=== PATIENT | female | born 1995 | race Caucasian/White ===

== ENCOUNTER 2018-06-03 23:14 | Emergency (ER) | payer MEDICAID, SELFPAY ==
[2018-06-03 23:17] VITALS: BP 101/79; PULSE 77; RESP 16; TEMP 36.6; O2SAT 98
--- NOTE | 2018-06-03 23:27 | ED.GENADUL_ITS ---
Discharge Plan Disposition Patient Disposition: HOME Condition: Improving Discharge Details Chief Complaint: Orthopedic Clinical Impression: Right ankle strain Primary Care Provider: Marko Rider ED Provider: Bandar Frey Home Meds and New Rx's Prescriptions: Continue clonidine HCl 0.1 mg Tablet 0.1 mg PO BID RF: 0 dexmethylphenidate 10 mg Tablet 10 mg PO BID RF: 0 hydroxyzine pamoate 25 mg Capsule 25 mg PO HS RF: 0 quetiapine [Seroquel] 50 mg Tablet 50 mg PO HS RF: 0 sertraline [Zoloft] 25 MG tablet 200 mg PO DAILY RF: 0 acetaminophen [Tylenol] 325 MG tablet 650 mg PO Q6H PRN PRNRF: 0 Discharge Instructions Instructions: Ankle Sprain (ED), Muscle Strain (ED) Additional Instructions: Crutches as needed for 3-5 days time. Clyde bandage for compression and stability. Elevate above the level of the heart to reduce pain and swelling. Apply ice to reduce discomfort. Tylenol and/or ibuprofen as needed for pain. Return to the emergency department for any acute concerns Stand Alone Forms: Work Release Medical Decision Making 22-year-old female who rolled her right ankle earlier in the day. She did not injure herself in any other way. She went to work and had progressive pain and swelling over the course of the day. She has normal vital signs and exam that shows swelling tenderness overlying the talofibular ligament. Patient referred for x-ray to rule out underlying fracture versus sprain/strain. X-ray obtained without evidence of underlying fracture. Will treat with Clyde bandage and crutches. She stable for outpatient management of ankle strain HPI General Mode of arrival: ambulatory . Date/Time Provider Initiated Documentation: 06/03/18 23:23 . Limitations to Documentation: no limitations . Information obtained by: patient . History of Present Illness 22 year old F presents to the emergency department with the chief complaint of Right ankle pain, described as moderate, Quality is described as aching, and is localized to the right and lower extremity. Patient reports no radiation. Patient started experiencing this hour(s) and it has been constant. Rest improves symptom(s), Movement worsens symptoms . Patient notes no other symptoms.. Patient did receive the following treatments prior to arrival, NSAID Related Data Home Medications Medication Instructions Recorded Confirmed acetaminophen [Tylenol] 650 mg PO Q6H PRN PRN tab 04/19/17 06/03/18 clonidine HCl 0.1 mg PO BID 06/03/18 06/03/18 dexmethylphenidate 10 mg PO BID 06/03/18 06/03/18 hydroxyzine pamoate 25 mg PO HS 06/03/18 06/03/18 quetiapine [Seroquel] 50 mg PO HS 06/03/18 06/03/18 sertraline [Zoloft] 200 mg PO DAILY 06/03/18 06/03/18 Previous Rx's Medication Instructions Recorded acetaminophen [Tylenol] 650 mg PO Q6H PRN PRN tab 04/19/17 Allergies Allergy/AdvReac Type Severity Reaction Status Date / Time Sulfa (Sulfonamide Allergy Unknown hives Unverified 07/10/17 08:43 Antibiotics) morphine Allergy Unverified 07/10/17 08:43 General Stated Complaint: Orthopedic WALE: 4 Review of Systems Review of Systems For systems reviewed and otherwise neg PFSH Family History Mother Substance abuse Alcohol abuse Mental disorder Father Substance abuse Alcohol abuse Mental disorder Sister No problems noted. Medical History BMI 45.0-49.9, adult Social History Smoking/Tobacco Use Status: Former Tobacco Use Surgical History Cholecystectomy (12/14/13) Exam Narrative Exam Narrative: GEN: awake, alert, oriented 3. Pleasant, well groomed, interactive. HEAD: Normocephalic, atraumatic ENT: Mucous membranes moist, oropharynx unremarkable, External ear exam unremarkable EYES: PERRL, EOMI NECK: Full ROM, no WILVER, no menigismus EXT: Full ROM, the right ankle has lateral swelling and tenderness on palpation. Motor serrated 5 out of 5 but limited somewhat by pain. Sensation is intact throughout Neuro: Grossly normal neurologic exam, conversant, interactive. Psych: Speech fluent, thoughts congruent, affect normal Course Vital Signs Temperature 36.6 C 06/03/18 23:17 Pulse 77 06/03/18 23:17 Respiratory Rate 16 06/03/18 23:17 Blood Pressure 101/79 06/03/18 23:17 Pulse Oximetry 98 06/03/18 23:17 Temperature 36.6 C 06/03/18 23:17 Temperature Source Skin 06/03/18 23:17 Pulse 77 06/03/18 23:17 Respiratory Rate 16 06/03/18 23:17 Respiratory Effort 06/03/18 23:24 Blood Pressure 101/79 06/03/18 23:17 Blood Pressure Position Sitting 06/03/18 23:17 Pulse Oximetry 98 06/03/18 23:17 Oxygen Delivery Method Room Air 06/03/18 23:17 Oxygen Flow Rate 0 06/03/18 23:17 Pain Level 10 06/03/18 23:17
[2018-06-03] MEDS: Ibuprofen 800 MG TAB PO (23:31)
--- NOTE | 2018-06-03 23:40 | DI.RAD_ITS ---
SYMPTOMS/DIAGNOSIS: LATERAL PAIN RIGHT ANKLE: No fracture or ankle mortise widening is seen. IMPRESSION: Negative right ankle.
--- NOTE | 2018-06-04 00:12 | DI.VRAD_ITS ---
EXAM: XR Right Ankle Complete, 3 or more Views EXAM DATE/TIME: 06/03/2018 11:24 PM CLINICAL HISTORY: 22 years old, female; Pain; Ankle; Right; Patient HX: Rolled ankle and pain TECHNIQUE: XR Right ankle 3 or more views. COMPARISON: No relevant prior studies available. FINDINGS: Bones/joints: Osseous mineralization is normal. Soft tissues: Normal. IMPRESSION: No acute fracture or malalignment. Dictated and Authenticated by: Kathryn Butler MD. Ordering:GT LANTIGUA MD
== END 2018-06-04 02:06 | disposition home or self-care (01) ==
PROVIDERS: Emergency Provider Emergency Medicine; PCP Family Medicine
DX: S93.401A Sprain of unspecified ligament of right ankle, initial encounter (principal); X50.9XXA Other and unspecified overexertion or strenuous movements or postures, initial encounter
CPT/HCPCS: 99283; 73610; E0114

== ENCOUNTER 2018-07-13 21:11 | Emergency (ER) | payer MEDICAID, SELFPAY ==
[2018-07-13 21:19] VITALS: BP 122/66; PULSE 86; RESP 16; TEMP 37.1; O2SAT 99
--- NOTE | 2018-07-13 21:29 | W.ED.GENAD ---
Discharge Plan Disposition Patient Disposition: HOME Condition: Fair Discharge Details Chief Complaint: Nk/Back Pain Clinical Impression: Muscle strain Primary Care Provider: Marko Rider ED Provider: Magda Oro Home Meds and New Rx's Prescriptions: New ibuprofen 600 mg tablet 600 mg PO QID PRN (Reason: pain) Qty: 20 RF: 0 Continue clonidine HCl 0.1 mg Tablet 0.1 mg PO BID RF: 0 dexmethylphenidate 10 mg Tablet 10 mg PO BID RF: 0 hydroxyzine pamoate 25 mg Capsule 25 mg PO HS RF: 0 quetiapine [Seroquel] 50 mg Tablet 50 mg PO HS RF: 0 sertraline [Zoloft] 25 MG tablet 200 mg PO DAILY RF: 0 acetaminophen [Tylenol] 325 MG tablet 650 mg PO Q6H PRN PRNRF: 0 Discharge Instructions Instructions: Muscle Strain (ED) Additional Instructions: Encourage hydration. Tylenol and/or Ibuprofen as needed for discomfort. Take care to not use more than 4,000mg daily of Tylenol, Tylenol is an ingredient in Excedrine. You may try topical options for discomfort including heat or ice, Salonpas or Lidoderm patches which are available over the counter. Physical therapy referral included. Please avoid activities that increase your discomfort. Please encourage gentle stretching and frequent ambulation. If you develop increased pain, fevers/chills, weakness or other new/worsening symptoms please seek care urgently once again. Stand Alone Forms: Physical Therapy Referral Referrals: Marko Rider [Primary Care Provider] - Discharge Data Discharge Date/Time-TO BE ENTERED AT DEPARTURE: 07/13/18 21:54 Medical Decision Making Patient is a 22-year-old female presenting today with chief complaint of left-sided back pain. She is coming by her significant other. She reports that 2-3 weeks ago, while lifting long heavy boards at work in a repetitive fashion, she had onset of discomfort. No trauma. Did not fall. Denies any one episode that caused the sudden onset of pain. Rather, she feels that this is from repetitive movements exacerbating this discomfort. Pain is along the left side of the back in the low thoracic region. No CVA tenderness. No paraspinal or midline tenderness. Area is fairly diffuse with no focal findings on exam. She does have good forward flexion and extension the pain is maximal rotation to the left. No neuro deficits noted on exam. With no recent trauma, and I feel that imaging is necessary at this time. Encouraged Tylenol and/or ibuprofen. We discussed topical options to help with discomfort. She will be referred to physical therapy to help with back discomfort. Advise follow-up with primary care in 1 week if symptoms have not improved. We discussed new/worsening symptoms and when to seek care urgently once again. All of her questions and concerns were addressed and she is in agreement with this plan. HPI General Mode of arrival: ambulatory. Date/Time Provider Initiated Documentation: 07/13/18 21:24. Limitations to Documentation: no limitations. Information obtained by: patient and family. History of Present Illness 22 year old F presents to the emergency department with the chief complaint of Left-sided back pain, described as moderate, with intensity rated at 6. Quality is described as aching, and is localized to the back. Patient reports no radiation. Patient started experiencing this week(s) (2) and it has been intermittent. Immobilization improves symptom(s), Movement worsens symptoms . Patient notes no other symptoms.; denies chest pain, cough, fever/chills, loss of appetite, nausea/vomiting, rash, shortness of breath and weakness. Patient did receive the following treatments prior to arrival, none Related Data Home Medications Medication Instructions Recorded Confirmed acetaminophen [Tylenol] 650 mg PO Q6H PRN PRN tab 04/19/17 07/13/18 clonidine HCl 0.1 mg PO BID 06/03/18 07/13/18 dexmethylphenidate 10 mg PO BID 06/03/18 07/13/18 hydroxyzine pamoate 25 mg PO HS 06/03/18 07/13/18 quetiapine [Seroquel] 50 mg PO HS 06/03/18 07/13/18 sertraline [Zoloft] 200 mg PO DAILY 06/03/18 07/13/18 ibuprofen 600 mg PO QID PRN #20 tab 07/13/18 Previous Rx's Medication Instructions Recorded acetaminophen [Tylenol] 650 mg PO Q6H PRN PRN tab 04/19/17 ibuprofen 600 mg PO QID PRN #20 tab 07/13/18 Allergies Allergy/AdvReac Type Severity Reaction Status Date / Time Sulfa (Sulfonamide Allergy Unknown hives Unverified 07/10/17 08:43 Antibiotics) morphine Allergy Unverified 07/10/17 08:43 General Stated Complaint: Nk/Back Pain WALE: 4 Review of Systems Constitutional Reports as per HPI, Denies chills, Denies fever(s), Denies headache(s) and Denies weakness ENT Denies headache(s) Cardiovascular Reports as per HPI, Denies chest pain and Denies dyspnea Respiratory Reports as per HPI, Denies cough and Denies dyspnea Gastrointestinal Reports as per HPI, Denies abdominal pain, Denies change in bowel habits, Denies nausea and Denies vomiting Genitourinary Reports as per HPI, Denies urinary frequency, Denies flank pain and Denies urinary incontinence Musculoskeletal Reports as per HPI, Reports back pain, Denies numbness, Denies radiating pain into limb and Denies tingling Integumentary/Breasts Reports as per HPI, Denies rash and Denies wounds Neurologic Denies headache(s), Denies numbness, Denies tingling and Denies weakness Exam Const General: cooperative, healthy appearing, comfortable, no acute distress, well developed and well groomed Nutritional Appearance: average body habitus and well nourished Orientation: alert and awake Chest Chest: normal inspection of the chest, normal palpation of entire chest wall, no crepitus and no localized rib tenderness Resp Effort & Inspection: normal respiratory effort, able to speak in complete sentences and no respiratory distress Auscultation: clear to auscultation bilaterally, no rales and no rhonchi Cardio Rate: regular rate Rhythm: regular rhythm Heart Sounds: S1 normal and S2 normal Back/Spine/Pelvis Back: no CVA tenderness Cervical Spine: normal cervical lordosis and cervical ROM normal Thoracic/Lumbar Spine: thoracic and lumbar spine normal to inspection (No midline or paraspinal tenderness. No step-off palpated), No thoraco-lumbar ROM normal (Patient has good forward flexion and extension of the spine. However, she reports increased discomfort with rotation, particularly to the left), straight leg raise negative bilaterally, No paraspinal tenderness, No thoraco-lumbar spasm, No thoracic spinal tenderness and No straight leg raise positive Pelvis: no pain with anterior-posterior compression and no pain with lateral compression Skin General skin exam: no rashes or lesions noted Trauma: no lacerations or abrasions Neuro General: alert and awake Cognition: normal cognition Speech: speech normal Gait: normal gait Motor: muscle tone normal throughout, strength 5/5 throughout, no movement abnormalities noted and no fasciculations Sensory Exam: no sensory deficits noted (No saddle. Seizures) DTR's: Rt Patellar: 2+, Lt Patellar: 2+, Rt Ankle: 2+ and Lt Ankle: 2+ Plantar Reflexes: Downgoing: bilateral Coordination: [id number] test normal Extrem General: normal to inspection, no pedal edema, no calf tenderness and normal gait Psych Appearance: grossly normal and well kempt Mental Status: mental status grossly normal Speech and Movement: speech and movement normal Course Vital Signs Temperature 37.1 C 07/13/18 21:19 Pulse 86 07/13/18 21:19 Respiratory Rate 16 07/13/18 21:19 Blood Pressure 122/66 07/13/18 21:19 Pulse Oximetry 99 07/13/18 21:19 Temperature 37.1 C 07/13/18 21:19 Temperature Source Temporal Artery Scan 07/13/18 21:19 Pulse 86 07/13/18 21:19 Respiratory Rate 16 07/13/18 21:19 Respiratory Effort 07/13/18 21:19 Blood Pressure 122/66 07/13/18 21:19 Blood Pressure Position Sitting 07/13/18 21:19 Pulse Oximetry 99 07/13/18 21:19 Oxygen Delivery Method Room Air 07/13/18 21:19 Oxygen Flow Rate 0 07/13/18 21:19 Pain Level 7 07/13/18 21:19
[2018-07-13] MEDS: Acetaminophen 500 MG TAB 1000 MG PO (21:49)
[2018-07-13] MEDS: Lidocaine 5% Patch 1 PATCH TP (21:49)
[2018-07-13] MEDS: Ibuprofen 600 MG TAB PO (21:49)
--- NOTE | 2018-07-14 21:19 | ED.GENADUL_ITS ---
Discharge Plan Disposition Patient Disposition: HOME Condition: Fair Discharge Details Chief Complaint: Nk/Back Pain Clinical Impression: Muscle strain Primary Care Provider: Marko Rider ED Provider: Magda Oro Home Meds and New Rx's Prescriptions: New ibuprofen 600 mg tablet 600 mg PO QID PRN (Reason: pain) Qty: 20 RF: 0 Continue clonidine HCl 0.1 mg Tablet 0.1 mg PO BID RF: 0 dexmethylphenidate 10 mg Tablet 10 mg PO BID RF: 0 hydroxyzine pamoate 25 mg Capsule 25 mg PO HS RF: 0 quetiapine [Seroquel] 50 mg Tablet 50 mg PO HS RF: 0 sertraline [Zoloft] 25 MG tablet 200 mg PO DAILY RF: 0 acetaminophen [Tylenol] 325 MG tablet 650 mg PO Q6H PRN PRNRF: 0 Discharge Instructions Instructions: Muscle Strain (ED) Additional Instructions: Encourage hydration. Tylenol and/or Ibuprofen as needed for discomfort. Take care to not use more than 4,000mg daily of Tylenol, Tylenol is an ingredient in Excedrine. You may try topical options for discomfort including heat or ice, Salonpas or Lidoderm patches which are available over the counter. Physical therapy referral included. Please avoid activities that increase your discomfort. Please encourage gentle stretching and frequent ambulation. If you develop increased pain, fevers/chills, weakness or other new/worsening symptoms please seek care urgently once again. Stand Alone Forms: Physical Therapy Referral Referrals: Marko Rider [Primary Care Provider] - Discharge Data Discharge Date/Time-TO BE ENTERED AT DEPARTURE: 07/13/18 21:54 Medical Decision Making Patient is a 22-year-old female presenting today with chief complaint of left- sided back pain. She is coming by her significant other. She reports that 2-3 weeks ago, while lifting long heavy boards at work in a repetitive fashion, she had onset of discomfort. No trauma. Did not fall. Denies any one episode that caused the sudden onset of pain. Rather, she feels that this is from repetitive movements exacerbating this discomfort. Pain is along the left side of the back in the low thoracic region. No CVA tenderness. No paraspinal or midline tenderness. Area is fairly diffuse with no focal findings on exam. She does have good forward flexion and extension the pain is maximal rotation to the left. No neuro deficits noted on exam. With no recent trauma, and I feel that imaging is necessary at this time. Encouraged Tylenol and/or ibuprofen. We discussed topical options to help with discomfort. She will be referred to physical therapy to help with back discomfort. Advise follow-up with primary care in 1 week if symptoms have not improved. We discussed new/ worsening symptoms and when to seek care urgently once again. All of her questions and concerns were addressed and she is in agreement with this plan. HPI General Mode of arrival: ambulatory . Date/Time Provider Initiated Documentation: 07/13/18 21:24 . Limitations to Documentation: no limitations . Information obtained by: patient and family . History of Present Illness 22 year old F presents to the emergency department with the chief complaint of Left-sided back pain, described as moderate, with intensity rated at 6. Quality is described as aching, and is localized to the back. Patient reports no radiation. Patient started experiencing this week(s) (2) and it has been intermittent. Immobilization improves symptom(s), Movement worsens symptoms . Patient notes no other symptoms.; denies chest pain, cough, fever/ chills, loss of appetite, nausea/vomiting, rash, shortness of breath and weakness. Patient did receive the following treatments prior to arrival, none Related Data Home Medications Medication Instructions Recorded Confirmed acetaminophen [Tylenol] 650 mg PO Q6H PRN PRN tab 04/19/17 07/13/18 clonidine HCl 0.1 mg PO BID 06/03/18 07/13/18 dexmethylphenidate 10 mg PO BID 06/03/18 07/13/18 hydroxyzine pamoate 25 mg PO HS 06/03/18 07/13/18 quetiapine [Seroquel] 50 mg PO HS 06/03/18 07/13/18 sertraline [Zoloft] 200 mg PO DAILY 06/03/18 07/13/18 ibuprofen 600 mg PO QID PRN #20 tab 07/13/18 Previous Rx's Medication Instructions Recorded acetaminophen [Tylenol] 650 mg PO Q6H PRN PRN tab 04/19/17 ibuprofen 600 mg PO QID PRN #20 tab 07/13/18 Allergies Allergy/AdvReac Type Severity Reaction Status Date / Time Sulfa (Sulfonamide Allergy Unknown hives Unverified 07/10/17 08:43 Antibiotics) morphine Allergy Unverified 07/10/17 08:43 General Stated Complaint: Nk/Back Pain WALE: 4 Review of Systems Constitutional Reports as per HPI, Denies chills, Denies fever(s), Denies headache(s) and Denies weakness ENT Denies headache(s) Cardiovascular Reports as per HPI, Denies chest pain and Denies dyspnea Respiratory Reports as per HPI, Denies cough and Denies dyspnea Gastrointestinal Reports as per HPI, Denies abdominal pain, Denies change in bowel habits, Denies nausea and Denies vomiting Genitourinary Reports as per HPI, Denies urinary frequency, Denies flank pain and Denies urinary incontinence Musculoskeletal Reports as per HPI, Reports back pain, Denies numbness, Denies radiating pain into limb and Denies tingling Integumentary/Breasts Reports as per HPI, Denies rash and Denies wounds Neurologic Denies headache(s), Denies numbness, Denies tingling and Denies weakness Exam Const General: cooperative, healthy appearing, comfortable, no acute distress, well developed and well groomed Nutritional Appearance: average body habitus and well nourished Orientation: alert and awake Chest Chest: normal inspection of the chest, normal palpation of entire chest wall, no crepitus and no localized rib tenderness Resp Effort & Inspection: normal respiratory effort, able to speak in complete sentences and no respiratory distress Auscultation: clear to auscultation bilaterally, no rales and no rhonchi Cardio Rate: regular rate Rhythm: regular rhythm Heart Sounds: S1 normal and S2 normal Back/Spine/Pelvis Back: no CVA tenderness Cervical Spine: normal cervical lordosis and cervical ROM normal Thoracic/Lumbar Spine: thoracic and lumbar spine normal to inspection (No midline or paraspinal tenderness. No step-off palpated), No thoraco-lumbar ROM normal (Patient has good forward flexion and extension of the spine. However, she reports increased discomfort with rotation, particularly to the left), straight leg raise negative bilaterally, No paraspinal tenderness, No thoraco- lumbar spasm, No thoracic spinal tenderness and No straight leg raise positive Pelvis: no pain with anterior-posterior compression and no pain with lateral compression Skin General skin exam: no rashes or lesions noted Trauma: no lacerations or abrasions Neuro General: alert and awake Cognition: normal cognition Speech: speech normal Gait: normal gait Motor: muscle tone normal throughout, strength 5/5 throughout, no movement abnormalities noted and no fasciculations Sensory Exam: no sensory deficits noted (No saddle. Seizures) DTR's: Rt Patellar: 2+, Lt Patellar: 2+, Rt Ankle: 2+ and Lt Ankle: 2+ Plantar Reflexes: Downgoing: bilateral Coordination: [id number] test normal Extrem General: normal to inspection, no pedal edema, no calf tenderness and normal gait Psych Appearance: grossly normal and well kempt Mental Status: mental status grossly normal Speech and Movement: speech and movement normal Course Vital Signs Temperature 37.1 C 07/13/18 21:19 Pulse 86 07/13/18 21:19 Respiratory Rate 16 07/13/18 21:19 Blood Pressure 122/66 07/13/18 21:19 Pulse Oximetry 99 07/13/18 21:19 Temperature 37.1 C 07/13/18 21:19 Temperature Source Temporal Artery Scan 07/13/18 21:19 Pulse 86 07/13/18 21:19 Respiratory Rate 16 07/13/18 21:19 Respiratory Effort 07/13/18 21:19 Blood Pressure 122/66 07/13/18 21:19 Blood Pressure Position Sitting 07/13/18 21:19 Pulse Oximetry 99 07/13/18 21:19 Oxygen Delivery Method Room Air 07/13/18 21:19 Oxygen Flow Rate 0 07/13/18 21:19 Pain Level 7 07/13/18 21:19
== END 2018-07-13 21:54 | disposition home or self-care (01) ==
PROVIDERS: Emergency Provider Physician Assistant; PCP Family Medicine
DX: S29.012A Strain of muscle and tendon of back wall of thorax, initial encounter (principal); X50.1XXA Overexertion from prolonged static or awkward postures, initial encounter
CPT/HCPCS: 99282

== ENCOUNTER 2018-09-04 10:02 | Outpatient (REF) | payer MEDICAID, SELFPAY ==
[2018-09-07 13:57] LABS: Chlamydia Result Negative; GC Result Negative; Specimen Description URINE
== END 2018-09-04 10:22 ==
LOC: LBN 10:02
PROVIDERS: PCP Family Medicine; Visit Provider Nurse Practitioner Women's Health
DX: Z11.3 Encounter for screening for infections with a predominantly sexual mode of transmission (principal)
CPT/HCPCS: 87491; 87591

== ENCOUNTER 2018-09-06 07:10 | Emergency (ER) | payer MEDICAID, SELFPAY ==
[2018-09-06 07:17] VITALS: BP 135/86; PULSE 100; RESP 16; TEMP 37; O2SAT 96
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
== END 2018-09-06 07:35 | disposition home or self-care (01) ==
PROVIDERS: Emergency Provider Emergency Medicine; PCP Nurse Practitioner Family
DX: S80.12XA Contusion of left lower leg, initial encounter (principal); V18.0XXA Pedal cycle driver injured in noncollision transport accident in nontraffic accident, initial encounter
CPT/HCPCS: 99282

== ENCOUNTER 2018-11-29 21:00 | Emergency (ER) | payer MEDICAID, SELFPAY ==
[2018-11-29 21:06] VITALS: BP 110/42; PULSE 81; RESP 16; TEMP 36.7; O2SAT 98
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
--- NOTE | 2018-11-29 21:30 | DI.RAD_ITS ---
SYMPTOMS/DIAGNOSIS: RT HEEL PAIN, ? ACUTE FRACTURE/SPUR/FOREIGN BODY RIGHT CALCANEUS: Two views. No bone, joint or soft tissue abnormality is identified. IMPRESSION: No acute abnormality.
--- NOTE | 2018-11-29 22:31 | DI.VRAD_ITS ---
EXAM: XR Right Calcaneus, 2 or More Views EXAM DATE/TIME: 11/29/2018 9:21 PM CLINICAL HISTORY: 23 years old, female; Pain; Heel; Right; Patient HX: Heel pain, no trauma; Additional info: Pain with walking, no trauma TECHNIQUE: Imaging protocol: XR of the Right calcaneus, 2 or more views. COMPARISON: CR XR ANKLE RT COMPLETE 06/03/2018 11:40 PM FINDINGS: Bones/joints: Normal. Soft tissues: Normal. IMPRESSION: Negative for acute skeletal pathology. Dictated and Authenticated by: Danny Cristina MD. Ordering:GABRIEL Vo MD
== END 2018-11-29 22:36 | disposition home or self-care (01) ==
PROVIDERS: Emergency Provider Physician Assistant; PCP Nurse Practitioner Family
DX: M79.671 Pain in right foot (principal)
CPT/HCPCS: 99283; 73650; 99282

== ENCOUNTER 2019-05-18 15:27 | Outpatient (REF) | payer MEDICAID, SELFPAY ==
[2019-05-18 18:44] LABS: HCT 40.3 % (36.0-46.0); HGB 13.6 g/dL (12.0-15.5); Mean Corp. HGB Concentration 33.7 g/dL (32.0-36.0); Mean Corpuscular Hemoglobin 27.1 pg (27.0-33.0); Mean Corpuscular Volume 80.3 fL (80-95); Mean Platelet Volume 9.5 fL (8.0-11.0); Platelet Count 421 x1000/uL (130-400); RBC 5.02 m/cumm (4.00-5.20); RBC Distribution Width 14.7 % (11.7-14.6); White Blood Cell Count 10.21 k/cumm (4.4-10.8)
[2019-05-18 19:01] LABS: ALT 47 U/L (14-59); AST 21 U/L (15-37); Albumin 4.1 g/dL (3.4-5.0); Alkaline Phosphatase 63 U/L (46-116); Anion Gap 11.3 mmol/L (3-11); BUN 19 mg/dL (7-18); Bilirubin, Total 0.4 mg/dL (0.2-1.0); CO2 23.7 mmol/L (21.0-32.0); Calcium 8.9 mg/dL (8.5-10.1); Chloride 104 mmol/L (98-107); Glucose 88 mg/dL (70-100); Potassium 3.9 mmol/L (3.5-5.1); Sodium 139 mmol/L (136-145); TSH (W/Ref FT4) 2.54 uIU/mL (0.36-3.74); Total Protein 7.8 g/dL (6.4-8.2)
[2019-05-20 10:50] LABS: Hepatitis C Ab w Rflx HCV PCR Negative (NEGAT)
[2019-05-20 11:08] LABS: Syphilis Serology (RPR) Negative (Negative)
[2019-05-20 11:35] LABS: Hepatitis B Surface Ag Negative (NEGAT)
[2019-05-20 11:53] LABS: HIV-1/2 Ag & Ab Screen Negative (NEGAT)
[2019-05-20 12:44] LABS: HBs Antibody, Quant 79.8 mIU/mL; Hepatitis B Surface Ab Positive
[2019-05-20 14:19] LABS: Chlamydia Result Positive; GC Result Negative; Specimen Description URINE
== END 2019-05-18 15:47 ==
LOC: NCHCN 15:27
PROVIDERS: PCP Nurse Practitioner Family; Visit Provider Nurse Practitioner Family
DX: F32.9 Major depressive disorder, single episode, unspecified (principal); R53.83 Other fatigue; Z11.59 Encounter for screening for other viral diseases; Z11.4 Encounter for screening for human immunodeficiency virus [HIV]; Z11.3 Encounter for screening for infections with a predominantly sexual mode of transmission
CPT/HCPCS: 80053; 85027; 86706; 86803; 87340; 87389; 87491; 87591; 84443; 86592

== ENCOUNTER 2019-05-28 13:48 | Outpatient (REF) | payer MEDICAID, SELFPAY ==
[2019-05-31 15:48] LABS: GC Result Negative; Specimen Description URINE
[2019-05-31 17:04] LABS: Chlamydia Result Indeterminate
== END 2019-05-28 14:08 ==
LOC: NCHCN 13:48
PROVIDERS: PCP Nurse Practitioner Family; Visit Provider Nurse Practitioner Family
DX: Z20.2 Contact with and (suspected) exposure to infections with a predominantly sexual mode of transmission (principal); Z11.3 Encounter for screening for infections with a predominantly sexual mode of transmission; Z00.00 Encounter for general adult medical examination without abnormal findings
CPT/HCPCS: 87491; 87591

== ENCOUNTER 2019-06-02 20:58 | Outpatient (REF) | payer MEDICAID, SELFPAY ==
[2019-06-04 15:12] LABS: Chlamydia Result Negative; GC Result Negative; Specimen Description URINE
== END 2019-06-02 21:18 ==
LOC: NCHCN 20:58
PROVIDERS: PCP Nurse Practitioner Family; Visit Provider Nurse Practitioner Family
DX: Z20.2 Contact with and (suspected) exposure to infections with a predominantly sexual mode of transmission (principal); Z11.3 Encounter for screening for infections with a predominantly sexual mode of transmission
CPT/HCPCS: 87491; 87591